=== PATIENT | male | born 1975 | race American Indian/Alaskan Native ===

== ENCOUNTER 2017-07-08 11:31 | Inpatient (IN) | payer MEDICARE ==
[2017-07-08 11:31] VITALS: PULSE 110
[2017-07-08 11:36] VITALS: BMI 39.8
--- NOTE | 2017-07-08 13:14 | RAD ---
HISTORY: Pedal edema COMPARISON: 02/24/2015 FINDINGS: LUNGS: No focal infiltrate seen. Mild bibasilar volume loss although improved from prior study. PLEURA: No significant pleural effusion identified, no pneumothorax apparent. CARDIOVASCULAR: Heart is moderately enlarged. There is evidence of prior median sternotomy. OSSEOUS STRUCTURES: No significant abnormalities. VISUALIZED UPPER ABDOMEN: Normal. OTHER FINDINGS: None. IMPRESSION: Cardiomegaly. No focal infiltrate. No appreciable CHF on this limited portable x-ray exam.
[2017-07-08 14:15] LABS: BASO # 0.01 K/mm3 (0.0-2.0); BASO % 0.1 % (0.0-3.0); EOS % 0.4 % (1.5-5.0); GRAN # 4.74 (1.4-6.5); GRAN % 62.1 % (50.0-68.0); HEMOGLOBIN 14.6 g/dL (14.0-18.0); LYMPH # 2.1 (1.2-3.4); LYMPH % 27.7 % (22.0-35.0); MEAN CELL VOLUME 91.3 fl (80.0-105.0); MEAN CORPUSCULAR HGB CONC 31.7 g/dl (31.0-37.0); MEAN PLATELET VOLUME 11.3 fl (7.0-11.0); MONO # 0.7 (0.1-0.6); MONO % 9.7 % (1.0-6.0); RBC 5.04 10^6/uL (3.5-6.1); RED CELL DISTRIBUTION WIDTH 16.6 % (11.5-14.5); VENOUS BLOOD GAS BASE EXCESS 1.5 mmol/L (0.0-2.0); VENOUS BLOOD GAS PO2 43 mm/Hg (30-55); VENOUS BLOOD PH 7.33 (7.32-7.43); WHITE BLOOD COUNT 7.6 10^3/ul (4.5-11.0)
[2017-07-08 14:16] LABS: URINE BILIRUBIN NEGATIVE (NEGATIVE); URINE BLOOD SMALL (NEGATIVE); URINE GLUCOSE (UA) NEGATIVE (NEGATIVE); URINE LEUKOCYTE ESTERASE NEGATIVE Leu/uL (NEGATIVE); URINE NITRATE NEGATIVE (NEGATIVE); URINE PROTEIN >=300 mg/dL (<30 mg/dL)
[2017-07-08 14:24] LABS: URINE APPEARANCE SL CLOUDY (CLEAR); URINE COLOR YELLOW (YELLOW)
[2017-07-08] MEDS ORDERED: Metoprolol 1 mg/ml Inj IVP STA (14:24)
[2017-07-08 14:32] LABS: URINE WBC 0 - 2 /hpf (0-6)
[2017-07-08 14:33] LABS: ALB/GLOB RATIO 1.2 (1.1-1.8); ALBUMIN 3.2 g/dL (3.0-4.8); CALCIUM 9.4 mg/dL (8.4-10.5); URINE AMORPHOUS SEDIMENT FEW; URINE BACTERIA SMALL (NEG)
[2017-07-08 14:43] LABS: PROTHROMBIN TIME 48.8 SECONDS (9.4-12.5)
--- NOTE | 2017-07-08 14:43 | ED PDOC ---
Arrival/HPI - General Historian: Patient <Murali King A - Last Filed: 07/08/17 20:43> <Rex Miller - Last Filed: 07/11/17 15:26> - General Chief Complaint: Lower Extremity Problem/Injury Time Seen by Provider: 07/08/17 11:55 - History of Present Illness Narrative History of Present Illness (Text): 07/08/17 14:36 42yo morbidly obese male with PMHx of CHF, A fib, Cardiomyopathy, hypertension present with complaint of b/l LE edema for over a week now. His mother who was by the bedside states his diuretic was stopped over a year ago. Patient states he only noticed swelling over a week ago. States he started having nonproductive cough last night. +worsening ARIELLE. Denies orthopnea, fever, chills , chest pain, diaphoresis, calf pain, travel, nausea, vomiting, diarrhea, any other complaint. (Murali King A) Past Medical History - Provider Review Nursing Documentation Reviewed: Yes - Infectious Disease Hx of Infectious Diseases: None - Cardiac Hx Atrial Fibrillation: Yes Hx Hypertension: Yes Hx Pacemaker: No Other/Comment: h/o heart valve sx - Pulmonary Hx Respiratory Disorders: Yes (SHORTNESS OF BREATH) - Neurological Hx Neurological Disorder: Yes (MENTALLY CHALLENGED BUT IS AAOX3 AND INDEPENDENT) Hx Seizures: Yes Hx Transient Ischemic Attacks (TIA): Yes - HEENT Hx HEENT Disorder: Yes (wears eyeglasses) - Hematological/Oncological Hx Blood Transfusions: No Hx Blood Transfusion Reaction: No - Musculoskeletal/Rheumatological Hx Musculoskeletal Disorders: No Hx Falls: No Hx Gout: Yes - Psychiatric Hx Emotional Abuse: No Hx Physical Abuse: No Hx Substance Use: No - Surgical History Hx Cardiac Catheterization: Yes Other/Comment: mechanical valve - Anesthesia Hx Anesthesia: Yes Hx Anesthesia Reactions: No Hx Malignant Hyperthermia: No - Suicidal Assessment Feels Threatened In Home Enviroment: No <Murali King A - Last Filed: 07/08/17 20:43> Family/Social History - Physician Review Nursing Documentation Reviewed: Yes Family/Social History: Unknown Family HX Smoking Status: Never Smoked Hx Alcohol Use: No Hx Substance Use: No Hx Substance Use Treatment: No <Murali King A - Last Filed: 07/08/17 20:43> Allergies/Home Meds <Murali King A - Last Filed: 07/08/17 20:43> <Rex Miller - Last Filed: 07/11/17 15:26> Allergies/Adverse Reactions: Allergies No Known Allergies Allergy (Verified 07/08/17 16:55) Home Medications: Home Meds Medication Instructions Recorded Confirmed Aspirin [Adult Low Dose Aspirin EC] 1 tab PO DAILY 07/08/17 07/11/17 Atorvastatin [Lipitor] 1 tab PO HS 07/08/17 07/11/17 Colchicine [Mitigare] 1 tab PO BID 07/08/17 07/11/17 Lisinopril [Zestril] 1 tab PO DAILY 07/08/17 07/11/17 Metoprolol Tartrate [Lopressor] 1 tab PO BID 07/08/17 07/11/17 amLODIPine [Norvasc] 1 tab PO DAILY 07/08/17 07/11/17 Review of Systems - Physician Review All systems were reviewed & negative as marked: Yes - Review of Systems Constitutional: Normal Eyes: Normal ENT: Normal Respiratory: SOB, Cough Cardiovascular: Edema, SHARPE. absent: Chest Pain, Palpitations, Calf Pain, Orthopnea Gastrointestinal: Normal Genitourinary Male: Normal Musculoskeletal: Normal Skin: Normal Neurological: Normal Endocrine: Normal Hemo/Lymphatic: Normal Psychiatric: Normal <Murali King A - Last Filed: 07/08/17 20:43> Physical Exam Vital Signs Reviewed: Yes Temperature: Afebrile Blood Pressure: Hypertensive Pulse: Tachycardic Respiratory Rate: Normal Appearance: Positive for: Well-Appearing, Non-Toxic, Comfortable, Other ( Morbidly obese) Pain Distress: None Mental Status: Positive for: Alert and Oriented X 3 - Systems Exam Head: Present: Atraumatic, Normocephalic Pupils: Present: PERRL Extroacular Muscles: Present: EOMI Conjunctiva: Present: Normal Mouth: Present: Moist Mucous Membranes Neck: Present: Normal Range of Motion Respiratory/Chest: Present: Clear to Auscultation, Good Air Exchange. No: Respiratory Distress, Accessory Muscle Use, Wheezes, Decreased Breath Sounds, Rales, Retracting, Rhonchi Cardiovascular: Present: Regular Rate and Rhythm, Normal S1, S2. No: Murmurs Abdomen: Present: Normal Bowel Sounds. No: Tenderness, Distention, Peritoneal Signs Back: Present: Normal Inspection Upper Extremity: Present: Normal Inspection. No: Cyanosis, Edema Lower Extremity: Present: Edema (4+ bipedal edema b/l). No: CALF TENDERNESS, NORMAL PULSES (DEcreased), Tenderness, Erythema Neurological: Present: GCS=15, CN II-XII Intact, Speech Normal Skin: Present: Warm, Dry, Normal Color. No: Rashes Psychiatric: Present: Alert, Oriented x 3, Normal Insight, Normal Concentration <Murali King A - Last Filed: 07/08/17 20:43> Vital Signs Temp Pulse Resp BP Pulse Ox 07/08/17 17:20 98.5 F 95 H 20 141/100 H 96 07/08/17 16:53 98 F 84 19 128/90 100 07/08/17 16:27 100 H 20 123/93 H 96 07/08/17 16:22 128 H 145/102 H 07/08/17 16:20 128 H 145/102 H 07/08/17 15:20 173/100 H 07/08/17 14:51 128 H 144/116 H 07/08/17 11:44 166/127 H 07/08/17 11:42 97.9 F 131 H 18 163/127 H 95 Medical Decision Making <Murali King A - Last Filed: 07/08/17 20:43> <Rex Miller - Last Filed: 07/11/17 15:26> ED Course and Treatment: 07/08/17 20:43 EKG Sinus tachy with usion complexes at 131bpm. PT have history of Afib. He was hypertensive and tachy in ED. His rate and BP improved in ED after Lopressor and Cardizem was given. BNP was elevated and Lasix was ordered. Troponin was elevated, Cr was elevate which is his baseline. Pt is on Coumadin and INR was therapeutic, 4.12 so no anticoagulant was ordered. Case was MICHAEL Pinzon who is covering Dr. Ramos and pt was admitted case was MICHAEL Bartholomew and he is aware of the pt. He is covering Dr. Gross, pt' s Food And Beverage Manager. (Murali King A) - Lab Interpretations Microbiology Results: Microbiology Results 07/08/17 14:15 Blood-Venous Blood Culture - Preliminary NO GROWTH AFTER 48 HOURS Lab Results: 07/08/17 14:05 07/08/17 14:05 Lab Results 07/08/17 14:05: Urine Color Yellow, Urine Appearance Sl cloudy, Urine pH 6.0, Ur Specific [place] >= 1.030, Urine Protein >=300 H, Urine Glucose (UA) Negative , Urine Ketones Negative, Urine Blood Small H, Urine Nitrate Negative, Urine Bilirubin Negative, Urine Urobilinogen 1.0 H, Ur Leukocyte Esterase Negative, Urine RBC 1 - 3, Urine WBC 0 - 2, Ur Epithelial Cells 1 - 3, Amorphous Sediment Few, Urine Bacteria Small 07/08/17 14:05: Sodium 143, Chloride 109 H, Potassium 3.6, Carbon Dioxide 25, Anion Gap 13, BUN 32 H, Creatinine 2.1 H, Est GFR ( Amer) 42, Est GFR ( Non-Af Amer) 34, Random Glucose 118 H, Calcium 9.4, Total Bilirubin 1.2, AST 58 , ALT 63 H, Alkaline Phosphatase 97, Lactate Dehydrogenase 1221 H, Total Creatine Kinase 778 H, CK-MB (CK-2) 8.0 H, CK-MB (CK-2) % 1.0 L, Troponin I 0.18 H* D, NT-Pro-B Natriuret Pep 4250 H, Total Protein 5.8, Albumin 3.2, Globulin 2.6, Albumin/Globulin Ratio 1.2 07/08/17 14:05: pO2 43, VBG pH 7.33, VBG pCO2 54.0, VBG HCO3 28.5 H, VBG Total CO2 30.2 H, VBG O2 Sat (Calc) 80.7 H, VBG Base Excess 1.5, VBG Potassium 4.6, Sodium 143.0, Chloride 107.0, Glucose 124 H, Lactate 2.0, FiO2 21.0, Venous Blood Potassium 4.6 07/08/17 14:05: PT 48.8 H, INR 4.12 H*, APTT 43.4 H 07/08/17 14:05: WBC 7.6 D, RBC 5.04, Hgb 14.6, Hct 46.0, MCV 91.3, MCH 29.0, MCHC 31.7, RDW 16.6 H, Plt Count 226, MPV 11.3 H, Gran % 62.1, Lymph % (Auto) 27.7, Powell % (Auto) 9.7 H, Eos % (Auto) 0.4 L, Baso % (Auto) 0.1, Gran # 4.74, Lymph # 2.1, Powell # 0.7 H, Eos # 0.0, Baso # 0.01 - RAD Interpretation Radiology Orders: 07/08/17 12:10 CHEST PORTABLE [RAD] Stat - Medication Orders Current Medication Orders: Discontinued Medications Amlodipine Besylate (Norvasc) 10 mg PO DAILY [facility] Last Admin: 07/11/17 10:34 Dose: 10 mg MAR Blood Pressure Document 07/11/17 10:34 ROXY (Rec: 07/11/17 10:34 ROXY [id number]) Blood Pressure Blood Pressure (100/60-150/90) 152/90 Aspirin (Aspirin Chewable) 81 mg PO DAILY [facility] Last Admin: 07/11/17 10:32 Dose: 81 mg Atorvastatin Calcium (Lipitor) 20 mg PO HS [facility] Last Admin: 07/10/17 22:05 Dose: 20 mg Colchicine (Colocrys) 0.6 mg PO BID [facility] Last Admin: 07/11/17 10:33 Dose: 0.6 mg Diltiazem HCl (Cardizem) 30 mg IVP STAT STA Stop: 07/08/17 16:06 Last Admin: 07/08/17 16:22 Dose: 30 mg IVP Administration Document 07/08/17 16:22 [facility] (Rec: 07/08/17 16:22 [facility] [id number]) Charges for Administration # of IVP Administrations 1 MAR Pulse and Blood Pressure Document 07/08/17 16:22 GMI (Rec: 07/08/17 16:22 [facility] [id number]) Pulse Pulse Rate (60-90) 128 Blood Pressure Blood Pressure (100/60-150/90) 145/102 Diltiazem HCl (Cardizem) 60 mg PO STAT STA Stop: 07/08/17 16:07 Last Admin: 07/08/17 16:20 Dose: 60 mg MAR Pulse and Blood Pressure Document 07/08/17 16:20 [facility] (Rec: 07/08/17 16:21 [facility] [id number]) Pulse Pulse Rate (60-90) 128 Blood Pressure Blood Pressure (100/60-150/90) 145/102 Diltiazem HCl (Cardizem) 60 mg PO TID [facility] Last Admin: 07/10/17 17:03 Dose: 60 mg MAR Pulse and Blood Pressure Document 07/10/17 17:03 SPA (Rec: 07/10/17 17:03 SPA [id number]) Pulse Pulse Rate (60-90) 94 Blood Pressure Blood Pressure (100/60-150/90) 127/88 Diltiazem HCl (Cardizem Cd) 240 mg PO DAILY [facility] Last Admin: 07/11/17 10:32 Dose: 240 mg MAR Pulse and Blood Pressure Document 07/11/17 10:32 ROXY (Rec: 07/11/17 10:33 ROXY [id number]) Pulse Pulse Rate (60-90) 98 Blood Pressure Blood Pressure (100/60-150/90) 152/90 Furosemide (Lasix) 40 mg IVP STAT STA Stop: 07/08/17 14:53 Last Admin: 07/08/17 15:20 Dose: 40 mg MAR Blood Pressure Document 07/08/17 15:20 GMI (Rec: 07/08/17 15:20 GMI [id number]) Blood Pressure Blood Pressure (100/60-150/90) 173/100 IVP Administration Document 07/08/17 15:20 GMI (Rec: 07/08/17 15:20 GMI [id number]) Charges for Administration # of IVP Administrations 1 Furosemide (Lasix) 40 mg IVP Q12 [facility] Last Admin: 07/10/17 22:06 Dose: 40 mg MAR Blood Pressure Document 07/10/17 22:06 SBO (Rec: 07/10/17 22:06 SBO [id number]) Blood Pressure Blood Pressure (100/60-150/90) 116/76 IVP Administration Document 07/10/17 22:06 SBO (Rec: 07/10/17 22:06 SBO [id number]) Charges for Administration # of IVP Administrations 1 Furosemide (Lasix) 40 mg PO BID [facility] Last Admin: 07/11/17 10:33 Dose: 40 mg MAR Blood Pressure Document 07/11/17 10:33 ROXY (Rec: 07/11/17 10:33 ROXY [id number]) Blood Pressure Blood Pressure (100/60-150/90) 152/90 Potassium Chloride (Potassium Chloride 10 Meq/100 Ml) 10 meq in 100 mls @ 50 mls/hr IVPB ONCE ONE Stop: 07/09/17 13:47 Last Admin: 07/09/17 12:11 Dose: 50 mls/hr eMAR Start Stop Document 07/09/17 12:11 SPA (Rec: 07/09/17 12:12 SPA [id number]) Intravenous Solution Start Date 07/09/17 Start Time 12:12 End Date 07/09/17 End time 14:12 Total Infusion Time 120 Magnesium Sulfate 2 gm/ Sodium (Chloride) 104 mls @ 102 mls/hr IVPB ONCE ONE Stop: 07/11/17 10:56 Last Admin: 07/11/17 11:53 Dose: 102 mls/hr eMAR Start Stop Document 07/11/17 11:53 ROXY (Rec: 07/11/17 11:53 ROXY [id number]) Intravenous Solution Start Date 07/11/17 Start Time 11:53 End Date 07/11/17 End time 12:55 Total Infusion Time 62 Lisinopril (Zestril) 40 mg PO DAILY [facility] Last Admin: 07/11/17 10:34 Dose: 40 mg Magnesium Oxide (Mag-Ox) 400 mg PO BID [facility] Last Admin: 07/11/17 10:34 Dose: 400 mg Metolazone (Zaroxolyn) 5 mg PO ONCE ONE Stop: 07/10/17 09:26 Last Admin: 07/10/17 10:30 Dose: 5 mg Metoprolol Tartrate (Lopressor) 5 mg IVP STAT STA Stop: 07/08/17 14:25 Last Admin: 07/08/17 14:51 Dose: 5 mg IVP Administration Document 07/08/17 14:51 GMI (Rec: 07/08/17 14:56 GMI [id number]) Charges for Administration # of IVP Administrations 1 MAR Pulse and Blood Pressure Document 07/08/17 14:51 GMI (Rec: 07/08/17 14:56 GMI [id number]) Pulse Pulse Rate (60-90) 128 Blood Pressure Blood Pressure (100/60-150/90) 144/116 Metoprolol Tartrate (Lopressor) 50 mg PO BID [facility] Last Admin: 07/10/17 09:23 Dose: 50 mg MAR Pulse and Blood Pressure Document 07/10/17 09:23 SPA (Rec: 07/10/17 09:[address] [id number][place] Pulse Pulse Rate (60-90) 129 Blood Pressure Blood Pressure (100/60-150/90) 155/114 Metoprolol Tartrate (Lopressor) 5 mg IVP STAT STA Stop: 07/09/17 01:14 Last Admin: 07/09/17 01:16 Dose: 5 mg IVP Administration Document 07/09/17 01:16 FDE (Rec: 07/09/17 01:16 FDE [id number]) Charges for Administration # of IVP Administrations 1 MAR Pulse and Blood Pressure Document 07/09/17 01:16 FDE (Rec: 07/09/17 01:[address] [id number]) Pulse Pulse Rate (60-90) 127 Blood Pressure Blood Pressure (100/60-150/90) 173/118 Metoprolol Tartrate (Lopressor) 100 mg PO BID [facility] Last Admin: 07/10/17 10:30 Dose: 100 mg MAR Pulse and Blood Pressure Document 07/10/17 10:30 SPA (Rec: 07/10/17 10:30 SPA [id number]) Pulse Pulse Rate (60-90) 131 Blood Pressure Blood Pressure (100/60-150/90) 153/114 Metoprolol Tartrate (Lopressor) 50 mg PO BID [facility] Last Admin: 07/11/17 10:33 Dose: 50 mg MAR Pulse and Blood Pressure Document 07/11/17 10:33 ROXY (Rec: 07/11/17 10:33 ROXY [id number]) Pulse Pulse Rate (60-90) 99 Blood Pressure Blood Pressure (100/60-150/90) 152/90 Pneumococcal Polyvalent Vaccine (Pneumovax 23 Vaccine) 0.5 ml IM .ONCE ONE Stop: 07/08/17 19:32 Potassium Chloride (K-Dur 20 Meq Er Tab) 20 meq PO K [facility] Last Admin: 07/11/17 08:24 Dose: 20 meq Potassium Chloride (K-Dur 20 Meq Er Tab) 40 meq PO ONCE ONE Stop: 07/10/17 15:01 Last Admin: 07/10/17 14:23 Dose: 40 meq Potassium Chloride (K-Dur 20 Meq Er Tab) 40 meq PO ONCE ONE Stop: 07/11/17 15:01 Warfarin Sodium (Coumadin) 3 mg PO HS [facility] PRN Reason: Protocol Last Admin: 07/10/17 22:05 Dose: 3 mg MAR aPTT Document 07/10/17 22:05 SBO (Rec: 07/10/17 22:05 SBO [id number]) aPTT aPTT (secs) 43 - PA / SHADOWGRAPH OPERATOR / Resident Statement MD/ has reviewed & agrees with the documentation as recorded. <Rex Miller - Last Filed: 07/11/17 15:26> Disposition/Present on Arrival - Present on Arrival Any Indicators Present on Arrival: No History of DVT/PE: No History of Uncontrolled Diabetes: No Urinary Catheter: No History of Decub. Ulcer: No History Surgical Site Infection Following: None - Disposition Have Diagnosis and Disposition been Completed?: Yes Disposition Time: 14:25 Patient Plan: Admission <Murali King - Last Filed: 07/08/17 20:43> <Rex Miller - Last Filed: 07/11/17 15:26> - Disposition Diagnosis: Elevated troponin, CHF (congestive heart failure), Hypertension, Renal insufficiency, Obesity Disposition: HOSPITALIZED Condition: FAIR
[2017-07-08 14:44] LABS: PARTIAL THROMBOPLASTIN TIME 43.4 Seconds (25.1-36.5)
[2017-07-08 14:45] LABS: INR 4.12 (0.93-1.08)
[2017-07-08 14:56] LABS: TROPONIN I 0.18 ng/mL
[2017-07-08 18:58] LABS: VENOUS BLOOD GAS BASE EXCESS 3.9 mmol/L (0.0-2.0); VENOUS BLOOD GAS PO2 40 mm/Hg (30-55); VENOUS BLOOD PH 7.44 (7.32-7.43)
[2017-07-08] MEDS: Potassium Chloride 20 mEq ER Tab PO SCH (19:26)
[2017-07-08] MEDS ORDERED: Influenza Vaccine 60 mcg/0.5 mL SYR (4YR UP) IM ONE (19:31)
[2017-07-08] MEDS ORDERED: Pneumococcal 23-Valent Vaccine IM ONE (19:31)
--- NOTE | 2017-07-08 23:45 | HP ---
DATE OF EVALUATION: 07/08/2017 HISTORY OF PRESENT ILLNESS: Mr. Meneses is a 42-year-old male, brought to the emergency room with bilateral leg swelling. He has a history of CHF, atrial fibrillation, and cardiomyopathy. He has leg edema for past few weeks, worsening now. No history of fever, cough, chills, rigor. He has a history of chronic kidney disease, hypertension, blood pressure controlled with current medications. He also has history of atrial fibrillation, heart rate controlled with beta- blockers. He was found to be coagulopathic with supratherapeutic INR of 4. He denies any chest pain. No nausea. No vomiting. He has history of valvular heart disease, status post valve replacement. PAST MEDICAL HISTORY: Atrial fibrillation, CHF, cardiomyopathy, mentally challenged, TIAs, and history of gout. PAST SURGICAL HISTORY: History of cardiac catheterization and prosthetic aortic valve. PERSONAL HISTORY: Never smoked. No history of alcohol abuse. SOCIAL HISTORY: Lives with mother at home. FAMILY HISTORY: Noncontributory. No positive family history. ALLERGIES: NO KNOWN DRUG ALLERGIES. HOME MEDICATIONS: Aspirin 81 mg daily, Lipitor 10 mg daily, colchicine 1 tablet b.i.d., lisinopril 20 daily, Coumadin, metoprolol, amlodipine 10 mg daily. REVIEW OF SYSTEMS: As per HPI. Rest of 12-point review of systems reviewed is negative. PHYSICAL EXAMINATION: GENERAL: Comfortable in bed and in no acute distress. VITAL SIGNS: Temperature 98.7, heart rate is 128 per minute on arrival, respiratory rate 20 per minute, blood pressure 140/100. HEENT: Pallor positive. NECK: No lymphadenopathy. CHEST: Air entry present and equal bilaterally. No added sound. HEART: Irregularly irregular. ABDOMEN: Soft and nontender. Obese. EXTREMITIES: Bilateral lower extremity edema. No discharge. SKIN: No petechia and no rash. TRACK WELDER: Alert and oriented x3. No focal sensory or motor deficit. LABORATORY DATA: White count 7.6, hemoglobin 14.6, hematocrit 46, and platelets 226. Sodium 143, potassium 3.6, BUN 32, creatinine 2.1, and glucose 118. BNP 4250. Troponin 0.18. INR 4.12. ASSESSMENT: 1. Non-ST elevation myocardial infarction. 2. Coagulopathic secondary to Coumadin. 3. Chronic kidney disease stgae 4. 4. Hypertension. 5. Congestive heart failure. 6. Atrial fibrillation, rapid heart rate. PLAN: He will be admitted to telementoring. Cardiology consultation, Dr. Gross, requested. He received a dose of Cardizem in the ER and one dose of Lasix given in the ER. We will continue Lasix 40 mg IV q.12. Continue lisinopril 40 mg daily, beta-jennifer 25 mg p.o. b.i.d, aspirin 81 mg daily, colchicine 1 tablet p.o. b.i.d. for history of gout. Potassium 20 mEq daily. Telementoring. Coumadin to be held. Will repeat PT/INR tomorrow. Heart-healthy diet. Echocardiogram ordered. Continue to monitor electrolytes closely. Labs ordered for tomorrow. Alexsandra Pinzon MD
[2017-07-09] MEDS ORDERED: Metoprolol 1 mg/ml Inj IVP STA (01:13)
[2017-07-09] MEDS ORDERED: Metoprolol 1 mg/ml Inj IVP ONE (01:16)
--- NOTE | 2017-07-09 05:16 | CON ---
DATE: REASON FOR CONSULTATION: Congestive heart failure. HISTORY OF PRESENT ILLNESS: The patient is a 42-year-old male who underwent aortic valve replacement for severe aortic insufficiency few years ago with a metallic valve. The patient has history of congestive heart failure and atrial fibrillation. The patient presented because of shortness of breath and worsening of leg swelling. The patient denies any retrosternal chest pain. The patient was taken off diuretics, he stopped it on his own last year. The patient is experiencing nonproductive cough. He denies any fever or chills. SOCIAL HISTORY: Nonsmoker. MEDICATIONS: Home medications include Lipitor 20 mg once a day, amlodipine 10 mg once a day, Lopressor 50 mg twice a day, Coumadin 5 mg once a day, Lasix 40 mg once a day, colchicine 0.6 mg twice a day, aspirin 81 mg once a day. REVIEW OF SYSTEMS: No fever or chills. No vomiting or diarrhea. No dizziness or syncope. PHYSICAL EXAMINATION: GENERAL: The patient is a middle-aged male who does not appear to be in acute distress. VITAL SIGNS: Blood pressure 141/100, heart rate 95, temperature 98.5, respirations 20. HEENT: Normocephalic. CHEST: Bilateral rhonchi. HEART: S1, S2 regular. ABDOMEN: Soft. EXTREMITIES: 2+ pitting edema. LABORATORY DATA: SMA-7, sodium 143, potassium 3.6, chloride 109, CO2 of 25, glucose 118, BUN 32, creatinine 2.1, troponin 0.18. ProBNP is 4250. INR is 4.12. Hemoglobin and hematocrit are 14.6 and 46.0. White count and platelet counts are within normal limits. Chest x-ray revealed significant cardiomegaly and mild CHF. Cardiac catheterization in 03/2014 prior to the aortic valve replacement revealed unremarkable coronaries with left dominant system and 50% to 60% OCL diagonal lesion. Ejection fraction at that time was 60%. ASSESSMENT: 1. Exacerbation of congestive heart failure. 2. Status post aortic valve replacement. 3. Atrial flutter. 4. Mild coagulopathy. RECOMMENDATIONS: Hold Coumadin for now. Start Lasix at 40 mg intravenous twice a day, K-Dur 20 mEq once a day. Resume Zestril at 40 mg once a day. Obtain an echocardiogram. Josesito Acosta MD
[2017-07-09 07:00] LABS: BASO # 0.02 K/mm3 (0.0-2.0); BASO % 0.3 % (0.0-3.0); EOS # 0.1 (0.0-0.7); EOS % 0.9 % (1.5-5.0); GRAN # 3.82 (1.4-6.5); GRAN % 51.2 % (50.0-68.0); HEMOGLOBIN 13.3 g/dL (14.0-18.0); LYMPH # 2.6 (1.2-3.4); LYMPH % 35.2 % (22.0-35.0); MEAN CELL VOLUME 90.2 fl (80.0-105.0); MEAN CORPUSCULAR HEMOGLOBIN 28.4 pg (25.0-35.0); MEAN CORPUSCULAR HGB CONC 31.4 g/dl (31.0-37.0); MEAN PLATELET VOLUME 11.1 fl (7.0-11.0); MONO # 0.9 (0.1-0.6); MONO % 12.4 % (1.0-6.0); RBC 4.69 10^6/uL (3.5-6.1); RED CELL DISTRIBUTION WIDTH 16.7 % (11.5-14.5); WHITE BLOOD COUNT 7.5 10^3/ul (4.5-11.0)
[2017-07-09 07:04] LABS: CALCIUM 9.1 mg/dL (8.4-10.5)
[2017-07-09 07:24] LABS: TROPONIN I 0.33 ng/mL
[2017-07-09 08:00] LABS: INR 3.38 (0.93-1.08); PROTHROMBIN TIME 39.9 SECONDS (9.4-12.5)
[2017-07-09] MEDS: Potassium Chloride 20 mEq ER Tab PO SCH (08:04)
--- NOTE | 2017-07-09 10:18 | CARD ---
APPROVED REPORT EKG Measurement Heart [id number] <Conclusion> Probably atrial flutter or atrial tachycardia, new LAHB PRWP STTW changes c/w ischemia
--- NOTE | 2017-07-09 19:05 | PN ---
DATE: SUBJECTIVE: The patient is still experiencing leg swelling and shortness of breath. He denies any chest pain. PHYSICAL EXAMINATION: VITAL SIGNS: Blood pressure 141/107, heart rate 130, atrial flutter on the monitor with 2:1 conduction, temperature 97.6, respirations 22. HEENT: Normocephalic. NECK: No JVD. HEART: S1 and S2, regular. LUNGS: Bibasilar rhonchi. ABDOMEN: Soft. EXTREMITIES: 2+ pitting edema. LABORATORY DATA: Hemoglobin and hematocrit 15.3 and 42.3, white count and platelet count are within normal limits. Today's potassium is 3.3, BUN and creatinine are 28 and 1.8. Troponin 0.33. Today's INR 3.38. ASSESSMENT: 1. New onset of atrial flutter. 2. Status post aortic valve replacement. 3. Exacerbation of congestive heart failure. 4. Borderline troponin elevation. 5. Mild renal insufficiency and hypokalemia. RECOMMENDATIONS: Continue K-dur 20 mEq orally daily, Lasix 40 mg intravenous twice a day, Lopressor 50 mg twice a day, 40 mg once a day, 10 mEq of intravenous sodium chloride was ordered today. Continue Norvasc 5 mg once a day, Zestril 20 mg once a day. Awaiting echocardiographic study tomorrow. Probably, the patient needs to be resumed on Coumadin tomorrow. Josesito Acosta MD
--- NOTE | 2017-07-09 23:57 | PN ---
DATE: SUBJECTIVE: The patient has no complaints of any chest pain. No shortness of breath. No headaches or dizziness. He states he is breathing better. PHYSICAL EXAMINATION: VITAL SIGNS: Temperature is 97.8, pulse is 120, blood pressure is 150/108, and respirations 20. GENERAL: The patient is lying in bed, flat, comfortable. HEENT: No oral lesion. Anicteric sclerae. Moist mucosa. NECK: No JVD, adenopathy, or thyromegaly. CARDIOVASCULAR: Positive click. S1 and S2, regular. No murmurs, rubs, or gallops. LUNGS: Clear to auscultation bilaterally. No wheeze, rales, or rhonchi. ABDOMEN: Bowel sounds are positive, soft, nontender and nondistended. EXTREMITIES: Lower extremity has 1+ edema. LABORATORY DATA: Potassium is 3.3, creatinine is 1.8. ASSESSMENT: 1. Acute congestive heart failure secondary to systolic dysfunction. 2. Hypokalemia. 3. Chronic kidney disease stage 3. 4. Non-ST elevation myocardial infarction. 5. Hypertension. 6. Atrial fibrillation, on anticoagulation. 7. Aortic valve replacement. PLAN: The patient is currently comfortable. He is on aspirin daily. He is going to continue the colchicine. The patient was given potassium replacement. He is on Lasix twice a day and Lipitor for dyslipidemia. The patient is on amlodipine for hypertension. He is on Zestril for his CHF and hypertension. He has an another echo that has been ordered. He is being followed by Cardiology. We will get repeat blood work tomorrow. Adalberto Starr MD
[2017-07-10 06:33] LABS: HEMOGLOBIN 13.5 g/dL (14.0-18.0); MEAN CELL VOLUME 90.9 fl (80.0-105.0); MEAN CORPUSCULAR HEMOGLOBIN 28.5 pg (25.0-35.0); MEAN CORPUSCULAR HGB CONC 31.3 g/dl (31.0-37.0); MEAN PLATELET VOLUME 11.5 fl (7.0-11.0); RBC 4.74 10^6/uL (3.5-6.1); RED CELL DISTRIBUTION WIDTH 16.5 % (11.5-14.5); WHITE BLOOD COUNT 6.9 10^3/ul (4.5-11.0)
[2017-07-10 06:37] LABS: INR 2.58 (0.93-1.08); PROTHROMBIN TIME 30.3 SECONDS (9.4-12.5)
--- NOTE | 2017-07-10 06:59 | PN ---
DATE: 07/10/2017 SUBJECTIVE: The patient has no complaints of any chest pain. No shortness of breath. No headaches. PHYSICAL EXAMINATION: VITAL SIGNS: Temperature is 97.8, pulse of 127, blood pressure is 134/82, and respirations 20. GENERAL: The patient is lying in bed, flat, comfortable. HEENT: No oral lesion. Anicteric sclerae. Moist mucosa. NECK: No JVD, adenopathy, or thyromegaly. CARDIOVASCULAR: S1 and S2, regular. No murmurs, rubs, or gallops. Positive clicks. LUNGS: Clear to auscultation bilaterally. No wheeze, rales, or rhonchi. ABDOMEN: Bowel sounds are positive, soft, nontender and nondistended. EXTREMITIES: 2+ edema. ASSESSMENT: 1. Acute congestive heart failure secondary to systolic dysfunction. 2. Non-ST elevation myocardial infarction. 3. Aortic valve replacement. 4. Atrial fibrillation, on anticoagulation. 5. Hypertension. 6. Hypokalemia. PLAN: The patient is currently comfortable. He is on aspirin for his VA. The patient is receiving colchicine. He is on potassium replacement. He is on Lasix IV for his lower extremity edema. He is on Lipitor for his dyslipidemia. The patient is going to continue with Norvasc for his hypertension. He is on lisinopril. There is an echocardiogram that has been ordered. He has been followed by Dr. Diaz in Cardiology. He is on a heart-healthy diet. We will continue to diurese the patient. Difficult to get . We will wait for further input from the soft sugar cutter. Adalberto Starr MD
[2017-07-10] MEDS: Potassium Chloride 20 mEq ER Tab PO SCH (08:13)
[2017-07-10 08:19] LABS: ALB/GLOB RATIO 1.2 (1.1-1.8); CALCIUM 9.1 mg/dL (8.4-10.5)
[2017-07-10] MEDS ORDERED: metOLazone 5 MG TAB PO ONE (09:25)
[2017-07-10] MEDS ORDERED: Potassium Chloride 20 mEq ER Tab PO ONE (15:00)
--- NOTE | 2017-07-10 15:41 | CARD ---
APPROVED REPORT EXAM: Two-dimensional and M-mode echocardiogram with Doppler and color Doppler. INDICATION 2D DIMENSIONS IVSd1.4 (0.7-1.1cm)LVDd6.8 (3.9-5.9cm) PWd1.4 (0.7-1.1cm)LVDs6.4 (2.5-4.0cm) FS (%) 5.9 %LVEF (%)12.6 (>50%) M-Mode DIMENSIONS Left Atrium (MM)5.50 (2.5-4.0cm)Aortic Root2.40 (2.2-3.7cm) Aortic Cusp Exc.1.80 (1.5-2.0cm) Aortic Valve AoV Peak Vhhsntkd733.0cm/sAoV VTI14.4cmAO Peak GR.6mmHg LVOT Peak Zpmjdzja72.5cm/sLVOT VTI7.76cmAO Mean GR.3mmHg Mitral Valve MV E Qcoykfnr764.0cm/s Tricuspid Valve TR Peak Jnemzycp666mu/sRAP VBICBDPC23ifCqPL Peak Gr.28mmHg LGTP29fjBp LEFT VENTRICLE The Left Ventricle is severely dilated. There is mild to moderate concentric left ventricular hypertrophy. The systolic function is severely impaired. There is global hypokinesis of the left ventricle. No left ventricle thrombus noted on this study. RIGHT VENTRICLE The right ventricle is moderately dilated. RV Systolic function is moderately to severely reduced. ATRIA The left atrium is moderately dilated. The right atrium is moderately dilated. AORTIC VALVE Cannot assess prosthetic aortic valve opening due to artifacts. MITRAL VALVE The mitral valve is moderately thickened. TRICUSPID VALVE There is mild pulmonary hypertension. GREAT VESSELS The aortic root is normal in size. The IVC is dilated. <Conclusion> The Left Ventricle is severely dilated. There is mild to moderate concentric left ventricular hypertrophy. The systolic function is severely impaired. There is global hypokinesis of the left ventricle. No left ventricle thrombus noted on this study. The right ventricle is moderately dilated. RV Systolic function is moderately to severely reduced. Cannot assess prosthetic aortic valve opening due to artifacts. There is mild pulmonary hypertension.
--- NOTE | 2017-07-10 17:12 | PN ---
DATE: 07/10/2017 CARDIOLOGY FOLLOWUP SUBJECTIVE: The patient's edema persists, although better. His breathing has improved. PHYSICAL EXAMINATION: VITAL SIGNS: Blood pressure is 153/114, heart rate is in the 130s to 140s, probable atrial flutter. NECK: Negative JVD. LUNGS: Decreased breath sounds bilaterally. HEART: Reveal S1, S2 with a 2/6 systolic ejection murmur. EXTREMITIES: 2+ edema. LABORATORIES: Troponins are up to 0.33, BUN and creatinine is 28 and 1.8. IMPRESSION: 1. Acute systolic congestive heart failure. 2. History of dilated cardiomyopathy. 3. History of aortic valve replacement. 4. Non-ST elevation myocardial infarction. 5. Renal insufficiency. 6. Pedal edema. 7. Obesity. PLAN: Given these findings, given these findings, we will add Cardizem to his regimen to help control his heart rate as well as help with blood pressure. We will adjust his beta-blockers. Awaiting his echo results. Tacos Gross MD
[2017-07-11 06:20] VITALS: RESP 20; O2SAT 95
[2017-07-11] MEDS: Potassium Chloride 20 mEq ER Tab PO SCH (08:24)
[2017-07-11 09:51] LABS: CALCIUM 9.6 mg/dL (8.4-10.5); MAGNESIUM 1.4 mg/dL (1.7-2.2)
[2017-07-11 09:52] LABS: INR 1.9 (0.93-1.08); PROTHROMBIN TIME 22.1 SECONDS (9.4-12.5)
[2017-07-11] MEDS ORDERED: Magnesium Sulfate 2 GM in Sodium Chloride 0.9% 100 ML IVPB ONE (09:55)
[2017-07-11] MEDS ORDERED: Magnesium Oxide 400 mg Tab UD PO SCH (10:00)
[2017-07-11] MEDS ORDERED: diltiaZEM 240 mg/24 Hours CD Cap PO SCH (10:00)
--- NOTE | 2017-07-11 10:32 | PN ---
DATE: 07/11/2017 SUBJECTIVE: The patient has no complaints of chest pain. No shortness of breath or headache. No dizziness. PHYSICAL EXAMINATION: VITAL SIGNS: Temperature is 97.6, pulse is 99, blood pressure is 145/92, respirations 20. GENERAL: The patient is lying in bed, flat, comfortable. HEENT: No oral lesion. Anicteric sclerae. Moist mucosa. NECK: No JVD, adenopathy, or thyromegaly. CARDIOVASCULAR: S1 and S2, regular. No murmurs, rubs, or gallops. LUNGS: Clear to auscultation bilaterally. No wheeze, rales, or rhonchi. ABDOMEN: Bowel sounds are positive, soft, nontender and nondistended. EXTREMITIES: 2+ edema. LABORATORY DATA: Creatinine is 1.8, potassium is 3.5. ASSESSMENT: 1. Acute congestive heart failure secondary to systolic dysfunction. 2. Non ST-elevation myocardial infarction. 3. Aortic valve replacement. 4. Atrial fibrillation with rapid rate, improving, on anticoagulation. 5. Hypertension. 6. Hypokalemia. PLAN: The patient is currently on potassium replacement. He is on Cardizem, this was increased. The patient is on colchicine. He is going to continue on potassium. He is on Lasix twice a day. He was given metolazone yesterday. He is on Norvasc for hypertension. Patient is on lisinopril. We will wait for the input from Dr. Gross. Patient did have improvement of his heart rate overnight with the changes in patient's medications. Adalberto Starr MD
[2017-07-11 11:59] VITALS: BP 144/100; PULSE 125; TEMP 98.1
[2017-07-11] MEDS ORDERED: Potassium Chloride 20 mEq ER Tab PO ONE (15:00)
--- NOTE | 2017-07-11 18:55 | PN ---
DATE: 07/11/2017 CARDIOLOGY FOLLOWUP SUBJECTIVE: The patient is ambulating without shortness of breath. PHYSICAL EXAMINATION VITAL SIGNS: Blood pressure 144/100, heart rate is in the 90s. NECK: Negative JVD. LUNGS: Without rales. HEART: With S1, S2. EXTREMITIES: Persistent edema in lower extremities, but better. LABORATORY DATA: Hemoglobin is 13.5. Chemistries, BUN and creatinine unremarkable. Potassium is 3.3 and has been replaced with BUN and creatinine 33 and 2.1. IMPRESSION: 1. Acute systolic congestive heart failure. 2. Cardiomyopathy. 3. Progressive pedal edema. 4. Progressive weight gain. 5. History of aortic valve replacement. 6. Renal insufficiency. Given these findings, we will continue the patient on medical therapy which includes Lasix. I have discussed with the patient about his need to eat healthier as well as to lose weight. Followup instructions were given to the patient in detail. Tacos Gross MD
== END 2017-07-11 14:55 | disposition home or self-care (01) | DRG 280 ==
LOC: ED 11:31 → ERH 15:18 → 2RSO 17:21
PROVIDERS: ADMIT Internal Medicine Nephrology; ATTEND Internal Medicine Nephrology
DX: I21.4 Non-ST elevation (NSTEMI) myocardial infarction (principal); I50.21 Acute systolic (congestive) heart failure; D68.9 Coagulation defect, unspecified; I42.0 Dilated cardiomyopathy; N18.4 Chronic kidney disease, stage 4 (severe); I48.92 Unspecified atrial flutter; Z95.2 Presence of prosthetic heart valve; I48.91 Unspecified atrial fibrillation; I13.0 Hypertensive heart and chronic kidney disease with heart failure and stage 1 through stage 4 chronic kidney disease, or unspecified chronic kidney disease; E87.6 Hypokalemia; I35.1 Nonrheumatic aortic (valve) insufficiency; E66.9 Obesity, unspecified; R79.1 Abnormal coagulation profile; T45.515A Adverse effect of anticoagulants, initial encounter; Z79.82 Long term (current) use of aspirin; Z79.899 Other long term (current) drug therapy; Z86.73 Personal history of transient ischemic attack (TIA), and cerebral infarction without residual deficits; R40.2412 Glasgow coma scale score 13-15, at arrival to emergency department; E78.5 Hyperlipidemia, unspecified; Z68.37 Body mass index [BMI] 37.0-37.9, adult

== ENCOUNTER 2017-08-03 06:40 | Inpatient (IN) | payer MEDICARE, OTHER ==
--- NOTE | 2017-08-03 07:21 | ED PDOC ---
Arrival/HPI - General Chief Complaint: Medical Clearance Time Seen by Provider: 08/03/17 07:12 Historian: Patient - History of Present Illness Narrative History of Present Illness (Text): 08/03/17 07:15 Jessee Meneses is a 42 year old male, whose past medical history includes atrial fibrillatio, who presents to the emergency department accompanied by mother, with complaints of shortness of breath for a couple of days. Patient reports recently being seen in the emergency department and notes having "fluid build-up ," as well as lower extremity swelling. Patient states he is compliant with his water pills (Dilaudid). Patient denies chest pain, headache, fever, chills, cough, nausea, vomiting, or other complaints. PMD: Dr. Gross 08/03/17 12:56 Time/Duration: < week Symptom Onset: Gradual Symptom Course: Unchanged Context: Home Past Medical History - Provider Review Nursing Documentation Reviewed: Yes - Infectious Disease Hx of Infectious Diseases: None - Cardiac Hx Atrial Fibrillation: Yes Hx Hypertension: Yes Hx Pacemaker: No Other/Comment: h/o heart valve sx - Pulmonary Hx Respiratory Disorders: Yes - Neurological Hx Neurological Disorder: Yes (MENTALLY CHALLENGED BUT IS AAOX3 AND INDEPENDENT) Hx Seizures: Yes Hx Transient Ischemic Attacks (TIA): Yes - HEENT Hx HEENT Disorder: Yes (wears eyeglasses) - Renal Hx Renal Disorder: No - Endocrine/Metabolic Hx Endocrine Disorders: No - Hematological/Oncological Hx Blood Disorders: No Hx Blood Transfusions: No Hx Blood Transfusion Reaction: No - Integumentary Hx Dermatological Disorder: No - Musculoskeletal/Rheumatological Hx Musculoskeletal Disorders: No Hx Falls: No Hx Gout: Yes - Gastrointestinal Hx Gastrointestinal Disorders: No - Genitourinary/Gynecological Hx Genitourinary Disorders: No - Psychiatric Hx Psychophysiologic Disorder: No Hx Emotional Abuse: No Hx Physical Abuse: No Hx Substance Use: No - Surgical History Hx Cardiac Catheterization: Yes Other/Comment: mechanical valve - Anesthesia Hx Anesthesia: Yes Hx Anesthesia Reactions: No Hx Malignant Hyperthermia: No - Suicidal Assessment Feels Threatened In Home Enviroment: No Family/Social History - Physician Review Nursing Documentation Reviewed: Yes Family/Social History: Unknown Family HX Smoking Status: Never Smoked Hx Alcohol Use: No Hx Substance Use: No Hx Substance Use Treatment: No Allergies/Home Meds Allergies/Adverse Reactions: Allergies No Known Allergies Allergy (Verified 07/08/17 16:55) Home Medications: Home Meds Medication Instructions Recorded Confirmed Aspirin [Adult Low Dose Aspirin EC] 1 tab PO DAILY 07/08/17 08/03/17 Atorvastatin [Lipitor] 1 tab PO HS 07/08/17 08/03/17 Colchicine [Mitigare] 1 tab PO BID 07/08/17 08/03/17 Lisinopril [Zestril] 1 tab PO DAILY 07/08/17 08/03/17 Metoprolol Tartrate [Lopressor] 1 tab PO BID 07/08/17 08/03/17 amLODIPine [Norvasc] 10 mg PO DAILY 07/08/17 08/03/17 Potassium Chloride [Klor-Con] 20 meq PO AC 08/03/17 08/03/17 Warfarin [Coumadin] 5 mg PO DAILY 08/03/17 08/03/17 Review of Systems - Review of Systems Constitutional: absent: Fevers Eyes: absent: Vision Changes ENT: absent: Hearing Changes Respiratory: SOB. absent: Cough Cardiovascular: absent: Chest Pain, SHARPE Gastrointestinal: absent: Abdominal Pain, Vomiting Genitourinary Male: absent: Dysuria Musculoskeletal: Other (bilateral lower extremity swelling ). absent: Neck Pain Skin: absent: Rash Neurological: absent: Headache, Dizziness, Focal Weakness Endocrine: absent: Diaphoresis Hemo/Lymphatic: absent: Adenopathy Physical Exam - Physical Exam Narrative Physical Exam (Text): 08/03/17 Head: Atraumatic. Normocephalic. Eyes: PERRL. EOMI. Conjunctivae are not pale. ENT: Mucous membranes are moist and intact. Oropharynx is clear and symmetric. Neck: Supple. Full ROM. No JVD. No lymphadenopathy. Cardiovascular: (+) Irregularly irregular rate. (+) Tachycardic. No murmurs, rubs, or gallops. Distal pulses are 2+ and symmetric. Pulmonary/Chest: (+) crackles at the bases. Abdominal: Soft but distended. There is no tenderness. No rebound, guarding, or rigidity. No organomegaly. Good bowel sounds. Back: No CVA tenderness. Extremities: (+) bilateral pedal edema. No cyanosis. No clubbing. Full range of motion in all extremities. No calf tenderness. Skin: Skin is warm and dry. No petechiae. No purpura. Neurological: Alert, awake, and oriented to person, place, time, and situation. Normal speech. Motor and sensory exam intact. Psychiatric: Good eye contact. Normal interaction, affect, and behavior. Vital Signs Reviewed: Yes Vital Signs Temp Pulse Resp BP Pulse Ox 08/03/17 12:09 129 H 142/90 08/03/17 12:00 98.8 F 123 H 20 136/93 H 08/03/17 11:09 142/96 H 08/03/17 11:07 106 H 142/96 H 08/03/17 09:28 100 H 18 126/81 97 08/03/17 07:52 122 H 139/92 H 08/03/17 07:23 18 97 08/03/17 07:00 97.0 F L 129 H 18 98 Temperature: Afebrile Blood Pressure: Normal Pulse: Irregular Respiratory Rate: Normal Appearance: Positive for: Non-Toxic, Uncomfortable Pain Distress: Mild Mental Status: Positive for: Alert and Oriented X 3 Medical Decision Making ED Course and Treatment: 08/03/17 Impression: 42 year old male with irregularly irregular heart rate, tachycardia, bilateral pedal edema, and crackles at bases in lungs complaining of shortness of breath and fluid build up. Differential Diagnosis included but are not limited to: atrial fibrillation with rapid ventricular response vs. CHF vs. CAD Plan: -- EKG -- Chest X-ray -- Labs -- Cardizam -- Reassess and disposition Progress Notes: Patient is noted to be in rapid atrial fibrillation/flutter on exam. BP stable. Not significantly hypoxic. Exam consistent with CHF. IV lasix ordered. IV cardizem bolus and drip ordered. Denies chest pain or headaches currently. Afebrile. He states that Dr. Gross is to be contacted. 08/03/17 07:[address] Gross, patient's hr specialist, who is aware of consult and treatment. 08/03/17 07:45 Chest X-ray interpreted by me: cardiomegaly with pulmonary edema. 08/03/17 08:57 Ventricular rate slightly improved. Currently not in any distress. INR found to be 12. Currently hemoglobin is 12 and no signs of active bleeding. Case discussed with pmd Dr. Starr and we will administer Vitamin K PO. Patient will be admitted to telemetry. 08/03/17 12:59 - Lab Interpretations Lab Results: 08/03/17 07:30 08/03/17 07:30 Lab Results 08/03/17 08:11: PT 147.1 H, INR 12.16 H*, APTT 72.7 H 08/03/17 07:30: Sodium 144, Potassium 4.3, Chloride 107, Carbon Dioxide 29, Anion Gap 12, BUN 35 H, Creatinine 2.3 H, Est GFR ( Amer) 38, Est GFR ( Non-Af Amer) 31, Random Glucose 93, Calcium 9.6, Magnesium 2.0, Total Bilirubin 1.4 H, AST 72 H, ALT 82 H, Alkaline Phosphatase 111, Lactate Dehydrogenase 1291 H, Total Creatine Kinase 471 H, CK-MB (CK-2) 6.1 H, CK-MB (CK-2) % 1.3 L, Troponin I 0.03 D, NT-Pro-B Natriuret Pep 2670 H, Total Protein 5.7 L, Albumin 3.1, Globulin 2.6, Albumin/Globulin Ratio 1.2 08/03/17 07:30: WBC 7.6, RBC 4.71, Hgb 13.6 L, Hct 42.5, MCV 90.2, MCH 28.9, MCHC 32.0, RDW 16.8 H, Plt Count 229, MPV 11.4 H, Gran % 51.3, Lymph % (Auto) 37.8 H, [place] % (Auto) 9.5 H, Eos % (Auto) 1.1 L, Baso % (Auto) 0.3, Gran # 3.89 , Lymph # (Auto) 2.9, [place] # (Auto) 0.7 H, Eos # (Auto) 0.1, Baso # (Auto) 0.02 08/03/17 07:28: POC Glucose (mg/dL) 96 I have reviewed the lab results: Yes - RAD Interpretation Radiology Orders: 08/03/17 07:14 CHEST PORTABLE [RAD] Stat Dictating Machine Transcriber: Radiologist - EKG Interpretation EKG Interpretation (Text): 08/03/17 13:00 EKG at 07:04 atrial flutter wtih rate of 128, st and t wave abnormality Interpreted by ED Physician: Yes Type: 12 lead EKG - Medication Orders Current Medication Orders: Amlodipine Besylate (Norvasc) 10 mg PO DAILY [facility] Aspirin (Ecotrin) 1 mg PO DAILY [facility] Atorvastatin Calcium (Lipitor) 1 mg PO HS [facility]ELIA Diltiazem HCl (Cardizem) 60 mg PO TID [facility] diltiaZEM IVPB 100mg in NS (Cardizem 100mg In Ns) 100 mls @ 5 mls/hr IV .Q20H PRN; Protocol; 5 MG/HR PRN Reason: TITRATE PER MD ORDER Last Admin: 08/03/17 08:00 Dose: 5 mls/hr eMAR Start Stop Document 08/03/17 08:00 [facility] (Rec: 08/03/17 08:00 [facility] [id number]) Intravenous Solution Start Date 08/03/17 Start Time 08:00 Milrinone Lactate/Dextrose (Primacor 20mg/100ml D5w) 100 mls @ 7.511 mls/hr IV .[id number] LELIA; 0.2 MCG/KG/MIN PRN Reason: Protocol Last Admin: 08/03/17 11:07 Dose: 7.511 mls/hr eMAR Start Stop Document 08/03/17 11:07 [facility] (Rec: 08/03/17 11:07 [facility] [id number]) Intravenous Solution Start Date 08/03/17 Start Time 11:07 AUG Pulse and Blood Pressure Document 08/03/17 11:07 [facility] (Rec: 08/03/17 11:07 [facility] [id number]) Pulse Pulse Rate (60-90 beats/min) 106 Blood Pressure Blood Pressure (100/60-150/90 mm Hg) 142/96 Lisinopril (Zestril) 1 mg PO DAILY [facility] Metoprolol Tartrate (Lopressor) 1 mg PO BID [facility] Discontinued Medications Diltiazem HCl (Cardizem) 15 mg IVP ONCE ONE Stop: 08/03/17 07:23 Last Admin: 08/03/17 07:52 Dose: 15 mg IVP Administration Document 08/03/17 07:52 [facility] (Rec: 08/03/17 07:52 [facility] [id number]) Charges for Administration # of IVP Administrations 1 MAR Pulse and Blood Pressure Document 08/03/17 07:52 [facility] (Rec: 08/03/17 07:52 [facility] [id number]) Pulse Pulse Rate (60-90 beats/min) 122 Blood Pressure Blood Pressure (100/60-150/90 mm Hg) 139/92 Diltiazem HCl (Cardizem) 60 mg PO ONCE ONE Stop: 08/03/17 11:59 Last Admin: 08/03/17 12:09 Dose: 60 mg MAR Pulse and Blood Pressure Document 08/03/17 12:09 [facility] (Rec: 08/03/17 12:10 [place] [id number]) Pulse Pulse Rate (60-90 beats/min) 129 Blood Pressure Blood Pressure (100/60-150/90 mm Hg) 142/90 Furosemide (Lasix) 40 mg IVP BID STA Stop: 08/03/17 10:12 Last Admin: 08/03/17 11:09 Dose: 40 mg MAR Blood Pressure Document 08/03/17 11:09 [facility] (Rec: 08/03/17 11:09 [place] [id number]) Blood Pressure Blood Pressure (100/60-150/90 mm Hg) 142/96 IVP Administration Document 08/03/17 11:09 [facility] (Rec: 08/03/17 11:09 [place] [id number]) Charges for Administration # of IVP Administrations 1 Milrinone Lactate/Dextrose (Primacor 20mg/100ml D5w) 100 mls @ 14.084 mls/hr IV .Q7H7M PRN; Protocol; 0.375 MCG/KG/MIN PRN Reason: TITRATE PER MD ORDER Milrinone Lactate/Dextrose (Primacor 1mg/Ml Inj (10ml)) 6.3 mg 0.05 mg/kg (6.3 mg) IVP ONCE ONE Stop: 08/03/17 10:20 Last Admin: 08/03/17 11:06 Dose: 6.3 mg IVP Administration Document 08/03/17 11:06 [facility] (Rec: 08/03/17 11:06 [id number] Charges for Administration # of IVP Administrations 1 Phytonadione (Vitamin K Tab) 5 mg PO ONCE ONE Stop: 08/03/17 08:51 Last Admin: 08/03/17 09:31 Dose: 5 mg - Scribe Statement The provider has reviewed the documentation as recorded by the Layne Ivy Provider Scribe Attestation: All medical record entries made by the Scribe were at my direction and personally dictated by me. I have reviewed the chart and agree that the record accurately reflects my personal performance of the history, physical exam, medical decision making, and the department course for this patient. I have also personally directed, reviewed, and agree with the discharge instructions and disposition. Disposition/Present on Arrival - Present on Arrival Any Indicators Present on Arrival: No History of DVT/PE: No History of Uncontrolled Diabetes: No Urinary Catheter: No History of Decub. Ulcer: No History Surgical Site Infection Following: None - Disposition Have Diagnosis and Disposition been Completed?: Yes Diagnosis: Atrial flutter with rapid ventricular response, CHF (congestive heart failure) , Elevated INR, Renal insufficiency Disposition: HOSPITALIZED Disposition Time: 09:00 Patient Plan: Admission Condition: SERIOUS
[2017-08-03] MEDS ORDERED: diltiaZEM IVPB 100mg in NS 100 ML IV PRN (07:23)
[2017-08-03 07:49] LABS: BASO # 0.02 K/mm3 (0.0-2.0); BASO % 0.3 % (0.0-3.0); EOS # 0.1 (0.0-0.7); EOS % 1.1 % (1.5-5.0); GRAN # 3.89 (1.4-6.5); GRAN % 51.3 % (50.0-68.0); HEMOGLOBIN 13.6 g/dL (14.0-18.0); LYMPH # 2.9 (1.2-3.4); LYMPH % 37.8 % (22.0-35.0); MEAN CELL VOLUME 90.2 fl (80.0-105.0); MEAN CORPUSCULAR HEMOGLOBIN 28.9 pg (25.0-35.0); MEAN PLATELET VOLUME 11.4 fl (7.0-11.0); MONO # 0.7 (0.1-0.6); MONO % 9.5 % (1.0-6.0); RBC 4.71 10^6/uL (3.5-6.1); RED CELL DISTRIBUTION WIDTH 16.8 % (11.5-14.5); WHITE BLOOD COUNT 7.6 10^3/ul (4.5-11.0)
[2017-08-03 08:03] LABS: ALB/GLOB RATIO 1.2 (1.1-1.8); ALBUMIN 3.1 g/dL (3.0-4.8); CALCIUM 9.6 mg/dL (8.4-10.5)
[2017-08-03 08:08] LABS: TROPONIN I 0.03 ng/mL
[2017-08-03 08:14] LABS: CK MB% 1.3 % (2.5-3.0); CK-MB 6.1 ng/mL (0.0-3.6)
[2017-08-03 08:41] LABS: PARTIAL THROMBOPLASTIN TIME 72.7 Seconds (25.1-36.5)
[2017-08-03 08:44] LABS: INR 12.16 (0.93-1.08)
[2017-08-03 08:45] LABS: PROTHROMBIN TIME 147.1 SECONDS (9.4-12.5)
--- NOTE | 2017-08-03 09:59 | RAD ---
HISTORY: sob COMPARISON: Portable chest 07/08/2017. FINDINGS: LUNGS: No active pulmonary disease. PLEURA: No significant pleural effusion identified, no pneumothorax apparent. CARDIOVASCULAR: Prominent cardiomegaly again appreciated with prosthetic cardiac valve again evident as well as sternotomy wires. No definite pulmonary vascular derangement is seen in the interval. OSSEOUS STRUCTURES: No significant abnormalities. VISUALIZED UPPER ABDOMEN: Normal. OTHER FINDINGS: None. IMPRESSION: Prominent cardiomegaly again appreciated including prosthetic cardiac valve but no definite pulmonary vascular derangement is appreciated at this time. No infiltrate or pleural effusion bilaterally. No pneumothorax identified.
[2017-08-03] MEDS ORDERED: Primacor 1 mg/ml Inj (10 ml) IVP ONE (10:19)
[2017-08-03] MEDS ORDERED: Milrinone 20mg/100ml D5W 100 ML IV PRN (10:21)
[2017-08-03] MEDS ORDERED: diltiaZEM 240 mg/24 Hours CD Cap PO SCH (10:30)
--- NOTE | 2017-08-03 10:40 | CARD ---
APPROVED REPORT EKG Measurement Heart [id number] <Conclusion> Atrial flutter with 2:1 AV conduction Left anterior fascicular block PRWP STTW changes c/w ischemia Prolonged QTc No change
[2017-08-03] MEDS: Milrinone 20mg/100ml D5W 100 ML IV SCH ×2 (11:07→22:17)
[2017-08-03 13:41] VITALS: BMI 35.4
[2017-08-03] MEDS ORDERED: Pneumococcal 23-Valent Vaccine IM ONE (13:41)
[2017-08-03] MEDS ORDERED: Influenza Vaccine 60 mcg/0.5 mL SYR (4YR UP) IM ONE (13:41)
[2017-08-04 07:10] LABS: HEMOGLOBIN 12.9 g/dL (14.0-18.0); MEAN CELL VOLUME 88.1 fl (80.0-105.0); MEAN CORPUSCULAR HEMOGLOBIN 28.5 pg (25.0-35.0); MEAN CORPUSCULAR HGB CONC 32.3 g/dl (31.0-37.0); MEAN PLATELET VOLUME 11.2 fl (7.0-11.0); RBC 4.53 10^6/uL (3.5-6.1); RED CELL DISTRIBUTION WIDTH 16.5 % (11.5-14.5); WHITE BLOOD COUNT 8.8 10^3/ul (4.5-11.0)
[2017-08-04 07:29] LABS: ALB/GLOB RATIO 1.2 (1.1-1.8); CALCIUM 9.4 mg/dL (8.4-10.5)
[2017-08-04 07:36] LABS: TROPONIN I 0.03 ng/mL
[2017-08-04 08:07] LABS: INR 5.79 (0.93-1.08)
[2017-08-04] MEDS: Digoxin 500 mcg/2ml (0.5 mg/2ml) Inj IVP SCH ×3 (08:45→11:17)
--- NOTE | 2017-08-04 09:40 | PN ---
DATE: 08/04/2017 CARDIOLOGY FOLLOWUP SUBJECTIVE: The patient's breathing is better and edema in the lower extremity is better. PHYSICAL EXAMINATION: VITAL SIGNS: Blood pressure 123/85, heart rates in the 110. NECK: Negative JVD. LUNGS: Clear to auscultation. HEART: Reveal S1, S2. EXTREMITIES: 1+ edema, which is better than yesterday. LABORATORY DATA: Hemoglobin is 12.9, BUN and creatinine are 42 and 2.5. IMPRESSION: 1. End-stage dilated cardiomyopathy. 2. Status post aortic valve replacement. 3. Renal insufficiency. 4. Congestive heart failure, which is improved. 5. Atrial fibrillation with increased heart rate. PLAN: Given these findings, we will increase his Cardizem and add digoxin to help lower his heart rate. Tacos Gross MD
--- NOTE | 2017-08-04 09:40 | HP ---
CHIEF COMPLAINT AND HISTORY OF PRESENT ILLNESS: This is a 42-year-old male who is coming into the hospital with rapid AFib. The patient states he was short of breath for the past few days. He was recently discharged from the hospital because of lower extremity edema and CHF exacerbation. The patient states he has been taking his diuretics. He sees Dr. Gross, who is his primary validation architect. The patient has no complaints of any headaches or dizziness. No nausea. No vomiting. No dysuria or frequency. No nocturia. Lower extremity has 1+edema. ALLERGIES: HE HAS NO KNOWN DRUG ALLERGIES. HOME MEDICATIONS: Has been reviewed. PAST MEDICAL HISTORY: 1. Atrial fibrillation, on anticoagulation. 2. CHF secondary to systolic dysfunction. 3. Cardiomyopathy. 4. TIA. 5. Gout. 6. Mentally challenged. PAST SURGICAL HISTORY: Cardiac cath and prosthetic aortic valve. SOCIAL HISTORY: He does not smoke, drink or use drugs. FAMILY HISTORY: He was living with his mother but maybe living with other family members as well. PHYSICAL EXAMINATION: VITAL SIGNS: Temperature 98, pulse of 63, blood pressure 127/74, respirations 18, oxygen saturation is 99%. Height is 6 feet 2 inches, weight is 276 pounds. BMI is 35. GENERAL: The patient lying in bed, uncomfortable, and in no acute distress. HEENT: Atraumatic and normocephalic. Anicteric sclerae. Moist mucosa. [place] conjunctivae. No oral lesions. NECK: No JVD, anterior and posterior adenopathy, thyromegaly, or bruits. CARDIOVASCULAR: S1 and S2 regular. No murmur, rubs, or gallop. LUNGS: Clear to auscultation bilaterally. No wheezes, rales, or rhonchi. ABDOMEN: Bowel sounds are positive. Soft, nontender and nondistended. No hepatosplenomegaly. No rebound and no guarding EXTREMITIES: No cyanosis, clubbing. Lower extremity has 1+edema. NEUROLOGIC: No facial asymmetry. Tongue is midline. No uvula deviation. Power is 5/5 upper extremity and lower extremity. Sensation intact in upper extremity and lower extremity. PSYCHIATRIC: He is awake, alert and oriented x3. No anxiety or depression. He has normal affect. GENITOURINARY: No CVA tenderness. VASCULAR: 2+ pulses in the carotid pulses and pedal pulses. SKIN: No erythema or nodules. SPINE: Shows normal curvature. LABORATORY DATA: His labs has been reviewed. Chest x-ray shows positive cardiomegaly with no infiltrates. ASSESSMENT: 1. Atrial fibrillation with rapid rate. 2. Acute congestive heart failure secondary to systolic dysfunction. 3. Coagulopathy. 4. Hypertension. 5. Coronary artery disease. 6. Chronic kidney disease stage III. PLAN: The patient is going to be admitted to the hospital. Patient's INR is 12 and was given vitamin K. Patient's troponin is 0.03. The LDH is elevated. His creatinine is also elevated. His baseline creatinine is about 2.1. The patient is placed on Cardizem. He is going to be on Lipitor for dyslipidemia. He is on metoprolol for his coronary artery disease. He is on milrinone by Dr. Gross. He is on lisinopril for his hypertension. We will repeat his blood work tomorrow. We will await further inputs from Dr. Gross. Adalberto Starr MD
--- NOTE | 2017-08-04 11:37 | PN ---
DATE: 08/04/2017 SUBJECTIVE: Patient has no complaints of any chest pain, shortness of breath or headaches. PHYSICAL EXAMINATION: VITAL SIGNS: Temperature is 97.2, pulse of 127, blood pressure is 132/90, respirations 20. GENERAL: The patient is lying in bed, flat, comfortable. HEENT: No oral lesion. Anicteric sclerae. Moist mucosa. NECK: No JVD, adenopathy, or thyromegaly. CARDIOVASCULAR: S1 and S2, regular. No murmurs, rubs, or gallops. LUNGS: Clear to auscultation bilaterally. No wheeze, rales, or rhonchi. ABDOMEN: Bowel sounds are positive, soft, nontender and nondistended. EXTREMITIES: no cyanosis, clubbing or edema. LABORATORY DATA: White count is 7.6, hemoglobin 13.6, creatinine is 2.3. ASSESSMENT: 1. Atrial fibrillation with rapid rate. 2. Acute congestive heart failure secondary to systolic dysfunction. 3. Aortic valve replacement, on Coumadin. 4. Coagulopathy secondary to Coumadin toxicity. 5. Hypertension. PLAN: The patient is currently admitted to the hospital. The patient was given vitamin K because of the elevated INR. The patient's Coumadin has been put on hold. The patient has been placed on Cardizem. Patient is being followed by Dr. Gross. Patient is on Lipitor for his dyslipidemia. Patient is on Norvasc for hypertension. He is on metoprolol for his cardiomyopathy. The patient is going to continue with milrinone. Heart-healthy diet has been ordered. Adalberto Starr MD
[2017-08-04] MEDS: Milrinone 20mg/100ml D5W 100 ML IV SCH (12:37)
--- NOTE | 2017-08-04 14:39 | CARD ---
APPROVED REPORT EXAM: Two-dimensional and M-mode echocardiogram with Doppler and color Doppler. INDICATION CHF 2D DIMENSIONS Left Atrium (2D)5.1 (1.6-4.0cm)IVSd1.2 (0.7-1.1cm) LVDd7.0 (3.9-5.9cm)PWd1.4 (0.7-1.1cm) LVDs6.6 (2.5-4.0cm)FS (%) 6.1 % LVEF (%)13.2 (>50%) M-Mode DIMENSIONS Aortic Root4.40 (2.2-3.7cm) Aortic Valve AoV Peak Xbvjmrix961.0cm/Pablo Peak GR.7mmHg Mitral Valve E/A ratio0.0 TDI E/Lateral E'0.0E/Medial E'0.0 Pulmonary Valve PV Peak Uoljdglf96.4cm/sPV Peak Grad.1mmHg Tricuspid Valve TR Peak [id number]/sRAP [id number] Peak Gr.45mmHg [id number] LEFT VENTRICLE The Left Ventricle is moderately dilated. The systolic function is severely impaired. RIGHT VENTRICLE The right ventricle is mildly dilated. ATRIA The left atrium is moderately dilated. The right atrium is moderately dilated. AORTIC VALVE There is trace aortic regurgitation. Aortic valve opening cannot be assessed due to imaging artifacts from the prosthesis. MITRAL VALVE The mitral valve is thickened but opens well. The mitral valve is moderately thickened. Mitral regurgitation is trace to mild. TRICUSPID VALVE The tricuspid valve leaflets are thickened , but open well. There is moderate tricuspid regurgitation. There is moderate pulmonary hypertension. PULMONIC VALVE The pulmonic valve is not well visualized. PERICARDIAL EFFUSION There is no pericardial effusion. <Conclusion> Markedly dilated LV Severe LV hypokinesis Prosthetic AoV Trace AI MAC Trace to mild MR Moderate TR Moderate pulmonary hypertension
[2017-08-04] MEDS ORDERED: Potassium Chloride 40 mEq/30 ml LIQ UD PO ONE (18:42)
[2017-08-05] MEDS: Milrinone 20mg/100ml D5W 100 ML IV SCH ×2 (02:33→17:47)
[2017-08-05 08:26] LABS: HEMOGLOBIN 13.5 g/dL (14.0-18.0); MEAN CELL VOLUME 88.9 fl (80.0-105.0); MEAN CORPUSCULAR HEMOGLOBIN 28.3 pg (25.0-35.0); MEAN CORPUSCULAR HGB CONC 31.8 g/dl (31.0-37.0); MEAN PLATELET VOLUME 10.9 fl (7.0-11.0); RBC 4.77 10^6/uL (3.5-6.1); RED CELL DISTRIBUTION WIDTH 16.5 % (11.5-14.5); WHITE BLOOD COUNT 7.6 10^3/ul (4.5-11.0)
[2017-08-05 08:45] LABS: PROTHROMBIN TIME 51.5 SECONDS (9.4-12.5)
[2017-08-05 08:49] LABS: INR 4.35 (0.93-1.08)
[2017-08-05 09:15] LABS: ALB/GLOB RATIO 1.1 (1.1-1.8); ALBUMIN 3.1 g/dL (3.0-4.8); CALCIUM 9.5 mg/dL (8.4-10.5)
[2017-08-05] MEDS: Digoxin 125 mcg (0.125 mg) Tab PO SCH (15:43)
[2017-08-05] MEDS: Potassium Chloride 10 mEq ER Tab PO SCH (17:52)
--- NOTE | 2017-08-05 21:32 | PN ---
DATE: SUBJECTIVE: The patient is 42 years old, seen and examined, sitting in chair, seems to be comfortable. Offers no complaint. No nausea or vomiting. No diarrhea. Eating fair. No shortness of breath. Able to ambulate to the bathroom. PHYSICAL EXAMINATION: VITAL SIGNS: He is afebrile, pulse 86, respirations 18, blood pressure 101/63. LUNGS: Bilateral fair airflow. No rhonchi or crackle. HEART: S1 and S2 audible. ABDOMEN: Soft, obese, nontender. No rebound. No guarding. EXTREMITIES: Bilateral leg +2 edema. LABORATORY EXAM WBC 7.6, hemoglobin 13.5, hematocrit 42.4, platelet of 179. PT 51.5, INR 4.35. Chemistry: Sodium 142, potassium 4.0, chloride 106, CO2 of 27, BUN 31, creatinine 2.1, blood sugar of 85, total bili 1.4, ALT 70. ASSESSMENT: 1. Morbid obesity. 2. Dilated cardiomyopathy. 3. Status post aortic valve replacement. 4. Renal insufficiency. 5. Congestive heart failure. 6. Chronic atrial fibrillation. 7. Supratherapeutic PT/INR. AND PLAN: We will hold his Coumadin for today. He is on diltiazem, we will continue that. He is on Colcrys, digoxin and aspirin. He is also getting amlodipine and metoprolol. Currently, he is on milrinone drip. I will follow up his PT/INR in a.m. Follow up his CBC in a.m. Harry Parker MD
--- NOTE | 2017-08-06 00:44 | PN ---
DATE: 08/05/2017 LOCATION: Patient in room 373, bed 3. This progress note being dictated on behalf of Dr. Gross, whom I am covering. REASON FOR CONSULTATION: End-stage dilated cardiomyopathy, status post aortic valve replacement, renal insufficiency, congestive heart failure, atrial fibrillation. SUBJECTIVE: Patient denies chest pain or palpitation. He says swelling on the legs is also decreasing. PHYSICAL EXAMINATION: VITAL SIGNS: Blood pressure is 118/60, respirations 16, pulse 74, temperature 97.8. HEENT: Head is normocephalic. Eyes, pupils normal. Conjunctivae normal. LUNGS: No significant rales. CARDIOVASCULAR: S1 and S2. ABDOMEN: Soft. No tenderness. No organomegaly. EXTREMITIES: Patient has still 4+ edema, bilateral. MEDICATIONS: Cardizem CD 90 mg t.i.d., colchicine 0.6 mg daily, digoxin 0.125 mg p.o. daily, aspirin 81 mg daily, potassium 10 mEq p.o. daily. We will add furosemide 40 IV b.i.d. because patient has significant swelling on both lower legs. Lipitor 20 mg daily, metoprolol 50 mg b.i.d., amlodipine 10 mg daily. LABORATORY DATA: WBC 7.6, hemoglobin 13.5, hematocrit 42.4, platelet 179. Sodium 142, potassium 4.0, BUN 31, creatinine 2.1, glucose 85, calcium 9.5, total bilirubin 1.4. AST 53, ALT 70. ASSESSMENT: End-stage dilated cardiomyopathy, congestive heart failure due to chronic left ventricular systolic dysfunction, status post aortic valve replacement, renal insufficiency, atrial fibrillation with rapid heart rate, congestive heart failure which has been showing improvement. PLAN: We will continue to follow with you. Patient is also on lisinopril 40 daily, milrinone drip, amlodipine 10 daily, metoprolol tartrate 50 b.i.d., atorvastatin 20 daily, furosemide 40 IV daily. I am starting on Lasix and potassium. Digoxin already on board at 0.125 daily. Aspirin 81 daily, colchicine 0.6 daily, diltiazem 90 mg t.i.d. Patient is started on digoxin also last night. We will see how patient's heart rate stabilizes with that. Karen Bhat MD
[2017-08-06] MEDS: Milrinone 20mg/100ml D5W 100 ML IV SCH ×3 (06:53→21:02)
[2017-08-06 07:55] LABS: BASO # 0.01 K/mm3 (0.0-2.0); BASO % 0.2 % (0.0-3.0); EOS # 0.2 (0.0-0.7); EOS % 2.8 % (1.5-5.0); GRAN # 3.33 (1.4-6.5); GRAN % 52.1 % (50.0-68.0); HEMOGLOBIN 13.1 g/dL (14.0-18.0); LYMPH # 2.1 (1.2-3.4); LYMPH % 32.1 % (22.0-35.0); MEAN CELL VOLUME 88.8 fl (80.0-105.0); MEAN CORPUSCULAR HEMOGLOBIN 28.3 pg (25.0-35.0); MEAN CORPUSCULAR HGB CONC 31.9 g/dl (31.0-37.0); MONO # 0.8 (0.1-0.6); MONO % 12.8 % (1.0-6.0); RBC 4.63 10^6/uL (3.5-6.1); RED CELL DISTRIBUTION WIDTH 16.5 % (11.5-14.5); WHITE BLOOD COUNT 6.4 10^3/ul (4.5-11.0)
[2017-08-06] MEDS: Potassium Chloride 10 mEq ER Tab PO SCH (07:59)
[2017-08-06 08:23] LABS: ALB/GLOB RATIO 1.1 (1.1-1.8); ALBUMIN 3.2 g/dL (3.0-4.8); CALCIUM 9.3 mg/dL (8.4-10.5)
[2017-08-06 08:29] LABS: PROTHROMBIN TIME 35.3 SECONDS (9.4-12.5)
--- NOTE | 2017-08-06 14:44 | PN ---
DATE: 08/06/2017 LOCATION: The patient in room 373, bed 3. This note being dictated on behalf of Dr. Gross whom I am covering. REASON FOR CONSULTATION AND FOLLOWUP: End-stage dilated cardiomyopathy, status post aortic valve replacement, renal insufficiency, congestive heart failure, atrial fibrillation. SUBJECTIVE: The patient denies any chest pain. He says breathing is better. Denies any palpitation. He still has swelling of legs. Lasix IV was started yesterday. PHYSICAL EXAMINATION: VITAL SIGNS: Blood pressure 148/93, respirations 18, pulse 81, temperature 97.0. Earlier blood pressure was 123/73. HEENT: Head is normocephalic. Eyes: Pupils normal. Conjunctivae normal. LUNGS: No significant rales. CARDIOVASCULAR: S1 and S2. Prosthetic aortic valve sounds. No rub. ABDOMEN: Soft. No tenderness. No organomegaly. Bowel sound normal. EXTREMITIES: The patient still has edema, bilateral legs. LABORATORY DATA: WBC 6.4, hemoglobin 13.1, hematocrit 41.1, platelet 209. Sodium 143, potassium 4.0, BUN 25, creatinine 1.9, total bilirubin 1.4, AST 55, ALT 65, total protein 6.0, albumin 3.2. The patient's prothrombin time today 35.3, INR 3.0. Earlier, the patient has high prothrombin time. DIAGNOSES: End-stage dilated cardiomyopathy, congestive heart failure due to chronic left ventricular systolic dysfunction, status post aortic valve replacement, renal insufficiency, atrial fibrillation, congestive heart failure, bilateral edema of legs, Coumadin toxicity. PLAN: The patient's INR is now 3.0. The patient has a valve, so we will start warfarin 3 mg starting p.o. today. Yesterday, we started furosemide 40 IV b.i.d. and potassium 10 mEq daily, Lipitor 20 daily, Cardizem 90 mg t.i.d., digoxin 0.125 daily, aspirin 81 daily, metoprolol 50 b.i.d., amlodipine 10 daily, lisinopril 40 daily. From tomorrow, Dr. Gross will follow. Karen Bhat MD [facility] # [id number]
[2017-08-06] MEDS: Digoxin 125 mcg (0.125 mg) Tab PO SCH (15:17)
--- NOTE | 2017-08-06 19:46 | PN ---
DATE: SUBJECTIVE: Patient is 42 years old, seen and examined. Seems to be comfortable. No nausea, vomiting, no diarrhea. No fever, no chills. No shortness of breath. Currently, he has milrinone drip going. PHYSICAL EXAMINATION VITAL SIGNS: He is afebrile. Pulse 81, respirations 18, blood pressure 148/93. LUNGS: Bilateral fair airflow. No rhonchi or crackle. HEART: S1 and S2 audible. ABDOMEN: Soft, obese, nontender. No rebound. No guarding. NEUROLOGICAL: He is awake, alert, oriented, communicative, ambulatory. EXTREMITIES: Bilateral leg +1 edema. LABORATORY DATA: WBC 6.4, hemoglobin 13, hematocrit 41, platelets 209, PT 35.3, INR 3.0. Chemistry: Sodium 143, potassium 4.0, chloride 105, CO2 31, BUN 25, creatinine 1.9, blood sugar of 92, total bilirubin 1.4. ASSESSMENT: 1. Dilated cardiomyopathy. 2. Status post congestive heart failure. 3. Morbid obesity. 4. Status post aortic valve replacement. 4. Renal insufficiency. 5. Chronic atrial fibrillation. PLAN: He will be given 3 mg of Coumadin. We will continue him on Cardizem. He will follow up his PT, CBC, CMP. He is on milrinone drip that will be continued. Harry Parker MD
[2017-08-07 07:08] LABS: BASO # 0.01 K/mm3 (0.0-2.0); BASO % 0.1 % (0.0-3.0); EOS # 0.2 (0.0-0.7); EOS % 2.4 % (1.5-5.0); GRAN # 3.51 (1.4-6.5); GRAN % 47.1 % (50.0-68.0); LYMPH # 2.6 (1.2-3.4); LYMPH % 35.3 % (22.0-35.0); MEAN CELL VOLUME 88.6 fl (80.0-105.0); MEAN CORPUSCULAR HEMOGLOBIN 28.4 pg (25.0-35.0); MEAN CORPUSCULAR HGB CONC 32.1 g/dl (31.0-37.0); MEAN PLATELET VOLUME 10.7 fl (7.0-11.0); MONO # 1.1 (0.1-0.6); MONO % 15.1 % (1.0-6.0); RBC 4.57 10^6/uL (3.5-6.1); RED CELL DISTRIBUTION WIDTH 16.4 % (11.5-14.5); WHITE BLOOD COUNT 7.5 10^3/ul (4.5-11.0)
[2017-08-07 07:26] LABS: ALB/GLOB RATIO 1.1 (1.1-1.8); ALBUMIN 3.1 g/dL (3.0-4.8)
[2017-08-07 08:50] LABS: INR 1.8 (0.93-1.08); PROTHROMBIN TIME 20.9 SECONDS (9.4-12.5)
[2017-08-07] MEDS ORDERED: Milrinone 20mg/100ml D5W 100 ML IV PRN (09:04)
[2017-08-07] MEDS: Potassium Chloride 10 mEq ER Tab PO SCH (10:11)
--- NOTE | 2017-08-07 13:00 | PN ---
DATE: SUBJECTIVE: Patient has no complaints of any chest pain or shortness of breath. He says he feels well. He says his lower extremity swelling is improving. PHYSICAL EXAMINATION VITAL SIGNS: Temperature is 97.7, pulse is 72, blood pressure is 104/64, respirations 18. GENERAL: The patient is lying in bed, flat, comfortable. HEENT: No oral lesion. Anicteric sclerae. Moist mucosa. NECK: No JVD, adenopathy, or thyromegaly. CARDIOVASCULAR: S1 and S2, regular. No murmurs, rubs, or gallops. LUNGS: Clear to auscultation bilaterally. No wheeze, rales, or rhonchi. ABDOMEN: Bowel sounds are positive, soft, nontender and nondistended. EXTREMITIES: No cyanosis, clubbing or edema. LABORATORY DATA: White count is 7.5, hemoglobin is 13, creatinine is 1.9. ASSESSMENT: 1. Atrial fibrillation with rapid rate, improving. 2. Acute congestive heart failure secondary to systolic dysfunction. 3. Aortic valve replacement on Coumadin. 4. Coagulopathy secondary to Coumadin toxicity. 5. Hypertension. PLAN: The patient is comfortable. He is on Cardizem for atrial fibrillation. Patient on Coumadin, which was restarted. His INR is 1.8. I will increase his Coumadin as he usually is on a higher dose. The patient is still on IV Cardizem. Patient is on milrinone for his cardiac . He is on Lasix daily. He is receiving Lipitor for dyslipidemia. He is on Norvasc for hypertension. He is also on lisinopril. Adalberto Starr MD
--- NOTE | 2017-08-07 14:20 | PN ---
DATE: 08/07/2017 CARDIOLOGY FOLLOWUP SUBJECTIVE: The patient's breathing is better. His edema is improved. OBJECTIVE: VITAL SIGNS: Blood pressure 120/80, the heart rate is 107, atrial fibrillation. NECK: Negative JVD. LUNGS: Without rales. HEART: S1, S2. EXTREMITIES: Trace to 1+ edema. LABORATORY DATA: Hemoglobin is 13. Chemistries: BUN and creatinine 23 and 1.9. IMPRESSION: 1. End-stage dilated cardiomyopathy. 2. History of valvular surgery. 3. Pedal edema. 4. Dilated cardiomyopathy. Given these findings, we will discontinue the milrinone today. We will check for CHF symptoms. The patient will likely need an ICD. Tacos Gross MD
[2017-08-07] MEDS: Digoxin 125 mcg (0.125 mg) Tab PO SCH (14:42)
--- NOTE | 2017-08-08 06:37 | CP.PCM.PN ---
Subjective - Date & Time of Evaluation Date of Evaluation: 08/08/17 Time of Evaluation: 06:37 - Subjective Subjective: draft Objective - Vital Signs/Intake and Output Vital Signs (last 24 hours): Temp Pulse Resp BP Pulse Ox 98.0 F 48 L 20 148/79 100 08/08/17 06:00 08/08/17 06:00 08/08/17 06:00 08/08/17 06:00 08/08/17 06:00 Intake and Output: 08/07/17 08/08/17 18:59 06:59 Intake Total 30 Output Total 200 700 Balance -200 -670 - Medications Medications: Current Medications Amlodipine Besylate (Norvasc) 10 mg PO DAILY [facility] Last Admin: 08/07/17 10:11 Dose: 10 mg Aspirin (Ecotrin) 81 mg PO DAILY [facility] Last Admin: 08/07/17 10:12 Dose: 81 mg Atorvastatin Calcium (Lipitor) 20 mg PO HS [facility] Last Admin: 08/07/17 22:30 Dose: 20 mg Colchicine (Colocrys) 0.6 mg PO DAILY [facility] Last Admin: 08/07/17 10:19 Dose: 0.6 mg Digoxin (Digoxin) 0.125 mg PO 1400 [facility] Last Admin: 08/07/17 14:42 Dose: 0.125 mg Diltiazem HCl (Cardizem) 90 mg PO TID [facility] Last Admin: 08/07/17 18:29 Dose: 90 mg Furosemide (Lasix) 40 mg IV BID [facility] Last Admin: 08/07/17 18:30 Dose: 40 mg Lisinopril (Zestril) 40 mg PO DAILY [facility] Last Admin: 08/07/17 10:11 Dose: 40 mg Metoprolol Tartrate (Lopressor) 50 mg PO BID [facility] Last Admin: 08/07/17 18:32 Dose: 50 mg Potassium Chloride (Klor-Con 10) 10 meq PO BRK [facility] Last Admin: 08/07/17 10:11 Dose: 10 meq Warfarin Sodium (Coumadin) 6 mg PO 1800 [facility] PRN Reason: Protocol Last Admin: 08/07/17 18:29 Dose: 6 mg - Labs Labs: 08/07/17 06:30 08/07/17 06:30 PT 20.9 SECONDS (9.4-12.5) H 08/07/17 06:30 INR 1.80 (0.93-1.08) H 08/07/17 06:30 APTT 72.7 Seconds (25.1-36.5) H 08/03/17 08:11
[2017-08-08 07:45] LABS: MAGNESIUM 1.6 mg/dL (1.7-2.2)
[2017-08-08] MEDS: Potassium Chloride 10 mEq ER Tab PO SCH (08:13)
[2017-08-08 08:50] VITALS: O2SAT 98
[2017-08-08 12:34] VITALS: BP 137/100; PULSE 100; RESP 20; TEMP 97.7
[2017-08-08] MEDS ORDERED: Magnesium Sulfate 2 GM in Sodium Chloride 0.9% 100 ML IVPB ONE (13:39)
[2017-08-08] MEDS ORDERED: Potassium Chloride 20 mEq/15 ml LIQ UD PO STA (13:42)
[2017-08-08] MEDS ORDERED: diltiaZEM 300 mg/24 Hours CD Cap PO SCH (13:45)
[2017-08-08] MEDS: Digoxin 125 mcg (0.125 mg) Tab PO SCH (14:00)
[2017-08-08 14:03] VITALS: PULSE 100
--- NOTE | 2017-08-08 17:18 | PN ---
DATE: 08/08/2017 CARDIOLOGY FOLLOWUP SUBJECTIVE: The patient is asymptomatic. The patient had an episode of nonsustained VT. His potassium and magnesium were both low. PHYSICAL EXAMINATION: VITAL SIGNS: Stable. NECK: Negative JVD. LUNGS: Without rales. HEART: S1, S2. EXTREMITIES: Decreased edema. LABORATORY DATA: Potassium is 3.6, magnesium is 1.6. Creatinine is 1.9. Hemoglobin is 13. IMPRESSION: 1. Severe dilated cardiomyopathy. 2. Atrial fibrillation. 3. Ventricular arrhythmias. 4. Hypomagnesemia and hypokalemia. 5. Congestive heart failure. Given these findings, we will need to replace the potassium and magnesium prior to discharge. The patient should go home on 40 of p.o. Lasix daily. We will change his short-acting Cardizem to long-acting Cardizem. We will give IV magnesium today. Tacos Gross MD
--- NOTE | 2017-08-09 05:32 | DS ---
HISTORY OF PRESENT ILLNESS: Patient has no complaints of any chest pain, shortness of breath, or headache. He was initially admitted to the hospital because he was having a rapid AFib and had lower extremity edema. The patient was started on IV Cardizem for rate control. He had improvement of his rate. He was seen by Cardiology. The patient had elevated INR and had been given vitamin K because of his coagulopathy. The patient has advanced cardiomyopathy. He was given milrinone. The patient most likely will need an ICD. He is being followed by Dr. Gross, I did review his note. PHYSICAL EXAMINATION: VITAL SIGNS: Temperature is 97.4, pulse is 53, blood pressure 133/94, respirations 20, and O2 saturation is 97%. GENERAL: The patient is lying in bed, flat, comfortable. HEENT: No oral lesion. Anicteric sclerae. Moist mucosa. NECK: No JVD, adenopathy, or thyromegaly. CARDIOVASCULAR: S1 and S2, regular. No murmurs, rubs, or gallops. LUNGS: Clear to auscultation bilaterally. No wheeze, rales, or rhonchi. ABDOMEN: Bowel sounds are positive, soft, nontender and nondistended. EXTREMITIES: No cyanosis, clubbing. Right lower extremity 1+ edema. ASSESSMENT: 1. Atrial fibrillation with rapid rate, which is improved. 2. Acute congestive heart failure secondary to systolic dysfunction. 3. Aortic valve replacement, on Coumadin. 4. Coagulopathy secondary to Coumadin toxicity. 5. Hypertension. 6. Lower extremity edema. PLAN: The patient is currently comfortable. He is on Cardizem for his atrial fibrillation. He is getting Cardizem 90 mg 3 times a day. The patient is on his Coumadin; I did increase it yesterday. He is on colchicine for hyperuricemia and Lipitor for dyslipidemia. He did receive his flu shot. The patient is receiving amlodipine for hypertension. He is on Zestril for his hypertension as well. He is on a heart-healthy diet. He was on once a day. I did advice the patient to get his INR checked within one week. Condition is stable. Activities, increase as tolerated. Adalberto Matty, MD
== END 2017-08-08 17:20 | disposition home or self-care (01) | DRG 291 ==
LOC: ED 06:40 → ERH 08:55 → 3RSO 10:15
PROVIDERS: ADMIT Internal Medicine Nephrology; ATTEND Internal Medicine Nephrology
DX: I13.0 Hypertensive heart and chronic kidney disease with heart failure and stage 1 through stage 4 chronic kidney disease, or unspecified chronic kidney disease (principal); I50.21 Acute systolic (congestive) heart failure; I48.2 Chronic atrial fibrillation; I42.0 Dilated cardiomyopathy; E66.01 Morbid (severe) obesity due to excess calories; N18.3 Chronic kidney disease, stage 3 (moderate); I25.10 Atherosclerotic heart disease of native coronary artery without angina pectoris; E83.42 Hypomagnesemia; M10.9 Gout, unspecified; E87.6 Hypokalemia; Z86.73 Personal history of transient ischemic attack (TIA), and cerebral infarction without residual deficits; R79.1 Abnormal coagulation profile; Z79.01 Long term (current) use of anticoagulants; Z95.2 Presence of prosthetic heart valve

== ENCOUNTER 2018-07-02 06:02 | Outpatient (CLI) | payer MEDICARE | END 2018-07-02 06:03 | disposition home or self-care (01) | LOC: CARDIO 06:02 ==